=== PATIENT | female | born 1985 | race African-American/Black ===

== ENCOUNTER 2020-04-06 05:40 | Emergency (ER) | payer OTHER, MEDICAID ==
[~2020-04-06] VITALS: Ht 172.7 cm; Wt 120.0 kg
[2020-04-06] MEDS ORDERED: PREDNISONE 20MG TABLET PO ONE (06:15)
[2020-04-06 07:34] VITALS: BP 161/96
== END 2020-04-06 07:51 | disposition home or self-care (01) ==
LOC: ER 05:53
DX: R06.02 Shortness of breath (principal)
CPT/HCPCS: 71045; 93005; 99283; J7512